=== PATIENT | female | born 1930 | race African-American/Black ===

== ENCOUNTER 2019-07-10 08:43 | Emergency (ER) | payer MEDICARE, MEDICAID ==
[~2019-07-10] VITALS: Ht 165.1 cm; Wt 68.0 kg
[~2019-07-10 08:43] MED LIST: HYDR12.54 PO; IRBE300T42 PO; METF-416 PO; PIOG15TA6 PO
[2019-07-10] MEDS ORDERED: ACETAMINOPHEN 325MG TABLET PO ONE (09:30)
[2019-07-10] MEDS ORDERED: CLONIDINE 0.1MG TABLET PO ONE (13:00)
[2019-07-10] MEDS ORDERED: AMLODIPINE 5MG TABLET PO ONE (13:00)
[2019-07-10 13:29] VITALS: BP 170/86
== END 2019-07-10 13:44 | disposition home or self-care (01) ==
LOC: ER 08:43
DX: S00.83XA Contusion of other part of head, initial encounter (principal); W06.XXXA Fall from bed, initial encounter; Y93.84 Activity, sleeping; Y92.013 Bedroom of single-family (private) house as the place of occurrence of the external cause
CPT/HCPCS: 99284

== ENCOUNTER 2019-12-23 09:02 | Inpatient (IN) | payer MEDICARE, MEDICAID ==
[~2019-12-23] VITALS: Ht 157.5 cm; Wt 82.4 kg
[2019-12-23] MEDS ORDERED: SODIUM CHLORIDE 0.9% 1,000 ML IV ONE ×2 (09:19→11:30)
[2019-12-23 10:16] LABS: BASOPHILS % 0.7 % (0.0-2.0); EOSINOPHILS % 1.5 % (0.0-5.0); HEMATOCRIT. 43.2 % (36.0-48.0); HEMOGLOBIN. 14.2 g/dL (12.0-16.0); LYMPHOCYTES % 21.1 % (20.0-50.0); MEAN CORPUSCULAR HEMOGLOBIN 30.1 pg (28.0-32.0); MEAN CORPUSCULAR VOLUME 91.5 fL (81.0-99.0); MEAN PLATELET VOLUME 9.1 fl (7.4-10.4); MONOCYTES % 6.6 % (2.0-8.0); NEUTROPHILS % 70.1 % (40.0-76.0); PLATELET 230 x1000/uL (130-400); RED BLOOD CELL COUNT 4.72 mill/uL (4.2-5.4); RED CELL DISTRIBUTION WIDTH 13.6 % (11.6-14.6)
[2019-12-23 10:20] LABS: CHLORIDE 101 mEq/L (98-107)
[2019-12-23 10:23] LABS: CLARITY URINE TURBID (CLEAR); COLOR URINE YELLOW (YELLOW); KETONES URINE NEGATIVE (NEGATIVE); LEUKOCYTE ESTERASE URINE 3+ (NEGATIVE); NITRITE URINE NEGATIVE (NEGATIVE); OCCULT BLOOD URINE 1+ (NEGATIVE); PROTEIN URINE TRACE (NEGATIVE); SPECIFIC GRAVITY URINE 1.017 (1.005-1.030); UROBILINOGEN URINE 0.2 E.U./dL (0.2-1.0)
[2019-12-23] MEDS ORDERED: AMLODIPINE 5MG TABLET PO ONE (11:30)
[2019-12-23] MEDS ORDERED: CEFTRIAXONE 1 G PREMIX 50 ML IV ONE (11:30)
[2019-12-23 14:31] VITALS: BP 160/84
[2019-12-23 14:40] VITALS: BP 160/84
[2019-12-23] MEDS ORDERED: GLYC30DR4 EACHEYE (15:19)
[2019-12-23] MEDS ORDERED: AGGR PO (15:19)
[2019-12-23] MEDS ORDERED: AMLO10TA80 PO (15:19)
[2019-12-23] MEDS ORDERED: GLIP5TAB12 PO (15:20)
[2019-12-23] MEDS ORDERED: SENN-170 MT (15:27)
[2019-12-23] MEDS ORDERED: GUAI-793 MT (15:27)
[2019-12-23] MEDS ORDERED: RISP0.5T19 PO (15:27)
[2019-12-23] MEDS ORDERED: METF-414 PO (15:27)
[2019-12-23] MEDS ORDERED: LOSA100T32 PO (15:27)
[2019-12-23] MEDS ORDERED: LEVO25TA2 PO (15:27)
[2019-12-23] MEDS ORDERED: DOCU250C19 PO (15:27)
[2019-12-23] MEDS ORDERED: DEXTROSE 50% WATER 50ML SYRINGE IV PRN (15:45)
[2019-12-23 15:53] VITALS: BP 148/86
[2019-12-23] MEDS ORDERED: DIPHENHYDRAMINE 50MG/ML VIAL IV PRN (16:45)
[2019-12-23] MEDS ORDERED: GUAIFENESIN 200MG/10ML SUGAR FREE UDC PO PRN (16:45)
[2019-12-23] MEDS ORDERED: SENNOSIDES 8.6MG TABLET PO PRN (16:45)
[2019-12-23] MEDS ORDERED: ACETAMINOPHEN 325MG TABLET PO PRN (16:45)
[2019-12-23] MEDS ORDERED: NA PHOS,M-B/NA PHOS,DI-BA ENEMA 118ML PR PRN (16:45)
[2019-12-23] MEDS ORDERED: MAGNESIUM/ALUMINUM HYDROXIDE/SIMETHICONE 30ML UDC PO PRN (16:45)
[2019-12-23] MEDS ORDERED: CLONIDINE 0.1MG TABLET PO PRN (16:45)
[2019-12-23] MEDS: BLOOD SUGAR DIAGNOSTIC STRIP TEST SCH ×2 (16:52→20:34)
[2019-12-23] MEDS: INSULIN LISPRO 100 UNITS/ML SUBCUT SCH ×2 (16:52→21:00)
[2019-12-23] MEDS: ENOXAPARIN 40MG/0.4ML SYR SUBCUT SCH (17:46)
[2019-12-23] MEDS: METFORMIN HCL 500MG TABLET PO SCH (17:46)
[2019-12-23] MEDS: MVI, ADULT NO.1 10 ML, FOLIC ACID 1 MG, THIAMINE HCL 100 MG in SODIUM CHLORIDE 0.9% 1,0... IV NR ×4 (18:58)
[2019-12-23 20:00] VITALS: BP 150/78
[2019-12-23] MEDS: NYSTATIN POWDER 15GM TOP SCH (20:33)
[2019-12-23] MEDS: ASPIRIN/DIPYRIDAMOLE 25MG/200MG CAPSULE SA PO SCH (20:33)
[2019-12-23] MEDS: RISPERIDONE 1MG TABLET PO SCH (20:33)
[2019-12-23] MEDS ORDERED: RISPERIDONE 0.5MG TABLET PO SCH (21:00)
[2019-12-23] MEDS: POLYVINYL ALCOHOL OPHTH DROPS 15ML BOTHEYE SCH (22:20)
[2019-12-24] VITALS: BP 135/75
[2019-12-24 04:00] VITALS: BP 171/90
[2019-12-24] MEDS: LEVOTHYROXINE SODIUM 25MCG TABLET PO SCH (06:04)
[2019-12-24] MEDS: BLOOD SUGAR DIAGNOSTIC STRIP TEST SCH ×4 (06:09→21:09)
[2019-12-24] MEDS: METFORMIN HCL 500MG TABLET PO SCH ×2 (06:16→17:12)
[2019-12-24] MEDS: GLIPIZIDE XL 2.5MG TABLET PO SCH (06:16)
[2019-12-24] MEDS: INSULIN LISPRO 100 UNITS/ML SUBCUT SCH ×4 (06:19→21:00)
[2019-12-24 08:00] VITALS: BP 181/91
[2019-12-24] MEDS: LOSARTAN POTASSIUM 100 MG TABLET PO SCH (09:31)
[2019-12-24] MEDS: ASPIRIN/DIPYRIDAMOLE 25MG/200MG CAPSULE SA PO SCH ×2 (09:31→21:14)
[2019-12-24] MEDS: FLUCONAZOLE 100MG TABLET PO SCH (09:31)
[2019-12-24] MEDS: AMLODIPINE 10MG TABLET PO SCH (09:32)
[2019-12-24] MEDS: DOCUSATE SODIUM 250MG CAPSULE PO SCH (09:32)
[2019-12-24] MEDS: POLYVINYL ALCOHOL OPHTH DROPS 15ML BOTHEYE SCH ×2 (09:33→21:14)
[2019-12-24] MEDS: NYSTATIN POWDER 15GM TOP SCH ×3 (09:33→17:26)
[2019-12-24 09:42] LABS: BASOPHILS % 0.3 % (0.0-2.0); HEMATOCRIT. 40.6 % (36.0-48.0); HEMOGLOBIN. 13.2 g/dL (12.0-16.0); LYMPHOCYTES % 27.9 % (20.0-50.0); MEAN CORPUSCULAR HEMOGLOBIN 29.7 pg (28.0-32.0); MEAN CORPUSCULAR VOLUME 91.5 fL (81.0-99.0); MEAN PLATELET VOLUME 9.1 fl (7.4-10.4); MONOCYTES % 5.8 % (2.0-8.0); PLATELET 202 x1000/uL (130-400); RED BLOOD CELL COUNT 4.44 mill/uL (4.2-5.4); RED CELL DISTRIBUTION WIDTH 13.5 % (11.6-14.6)
[2019-12-24 09:53] LABS: CHLORIDE 109 mEq/L (98-107)
[2019-12-24 09:59] LABS: PHOSPHORUS 2.2 mg/dL (2.5-4.9)
[2019-12-24 12:00] VITALS: BP 178/91
[2019-12-24] MEDS: CEFTRIAXONE 1 G PREMIX 50 ML IV SCH (12:50)
[2019-12-24 16:00] VITALS: BP 116/77
[2019-12-24] MEDS: ENOXAPARIN 40MG/0.4ML SYR SUBCUT SCH (17:12)
[2019-12-24] MEDS ORDERED: MAGNESIUM 1 G PREMIX 100 ML IV NR (17:30)
[2019-12-24 17:54] LABS: T4 FREE 1.27 ng/dL (0.76-1.46)
[2019-12-24 18:14] LABS: FOLIC ACID (FOLATE) SERUM > 20.00 ng/mL (>5.38)
[2019-12-24 18:22] LABS: VITAMIN B12 SERUM 806 pg/mL (211-911)
[2019-12-24] MEDS: MVI, ADULT NO.1 10 ML, FOLIC ACID 1 MG, THIAMINE HCL 100 MG in SODIUM CHLORIDE 0.9% 1,0... IV NR ×4 (19:41)
[2019-12-24 20:00] VITALS: BP_SYST 138; BP_SYST 153; BP_DIAS 66; BP_DIAS 89
[2019-12-24] MEDS: RISPERIDONE 1MG TABLET PO SCH (21:14)
[2019-12-25] VITALS: BP 159/83
[2019-12-25 04:00] VITALS: BP 162/87
[2019-12-25] MEDS: BLOOD SUGAR DIAGNOSTIC STRIP TEST SCH ×4 (07:05→21:42)
[2019-12-25] MEDS: LEVOTHYROXINE SODIUM 25MCG TABLET PO SCH (07:06)
[2019-12-25] MEDS: INSULIN LISPRO 100 UNITS/ML SUBCUT SCH ×4 (07:15→21:00)
[2019-12-25 07:38] LABS: CHLORIDE 109 mEq/L (98-107)
[2019-12-25 07:53] LABS: BASOPHILS % 0.3 % (0.0-2.0); EOSINOPHILS % 1.8 % (0.0-5.0); HEMATOCRIT. 38.8 % (36.0-48.0); HEMOGLOBIN. 12.9 g/dL (12.0-16.0); LYMPHOCYTES % 28.9 % (20.0-50.0); MEAN CORPUSCULAR HEMOGLOBIN 30.2 pg (28.0-32.0); MEAN CORPUSCULAR VOLUME 90.9 fL (81.0-99.0); MEAN PLATELET VOLUME 9.4 fl (7.4-10.4); MONOCYTES % 7.4 % (2.0-8.0); NEUTROPHILS % 61.6 % (40.0-76.0); PLATELET 221 x1000/uL (130-400); RED BLOOD CELL COUNT 4.27 mill/uL (4.2-5.4); RED CELL DISTRIBUTION WIDTH 13.6 % (11.6-14.6)
[2019-12-25 08:00] VITALS: BP 174/88
[2019-12-25] MEDS: GLIPIZIDE XL 2.5MG TABLET PO SCH (09:45)
[2019-12-25] MEDS: POLYVINYL ALCOHOL OPHTH DROPS 15ML BOTHEYE SCH ×2 (09:45→21:47)
[2019-12-25] MEDS: NYSTATIN POWDER 15GM TOP SCH ×3 (09:45→17:52)
[2019-12-25] MEDS: METFORMIN HCL 500MG TABLET PO SCH ×2 (09:45→17:53)
[2019-12-25] MEDS: ASPIRIN/DIPYRIDAMOLE 25MG/200MG CAPSULE SA PO SCH ×2 (09:46→21:47)
[2019-12-25] MEDS: FLUCONAZOLE 100MG TABLET PO SCH (09:46)
[2019-12-25] MEDS: DOCUSATE SODIUM 250MG CAPSULE PO SCH (09:46)
[2019-12-25] MEDS: AMLODIPINE 10MG TABLET PO SCH (09:46)
[2019-12-25] MEDS: LOSARTAN POTASSIUM 100 MG TABLET PO SCH (09:46)
[2019-12-25 12:00] VITALS: BP 158/85
[2019-12-25] MEDS: CEFTRIAXONE 1 G PREMIX 50 ML IV SCH (12:40)
[2019-12-25 16:00] VITALS: BP 126/71
[2019-12-25] MEDS: ENOXAPARIN 40MG/0.4ML SYR SUBCUT SCH (17:53)
[2019-12-25 20:00] VITALS: BP 148/88
[2019-12-25] MEDS: RISPERIDONE 1MG TABLET PO SCH (21:47)
[2019-12-26] VITALS (7 sets, daily range): BP systolic 140–161; BP diastolic 73–93
[2019-12-26] MEDS: BLOOD SUGAR DIAGNOSTIC STRIP TEST SCH ×4 (06:35→20:43)
[2019-12-26] MEDS: INSULIN LISPRO 100 UNITS/ML SUBCUT SCH ×4 (06:36→20:57)
[2019-12-26] MEDS: LEVOTHYROXINE SODIUM 25MCG TABLET PO SCH (06:40)
[2019-12-26] MEDS: NYSTATIN POWDER 15GM TOP SCH ×3 (09:08→17:27)
[2019-12-26] MEDS: FLUCONAZOLE 100MG TABLET PO SCH (09:10)
[2019-12-26] MEDS: POLYVINYL ALCOHOL OPHTH DROPS 15ML BOTHEYE SCH ×2 (09:10→20:56)
[2019-12-26] MEDS: ASPIRIN/DIPYRIDAMOLE 25MG/200MG CAPSULE SA PO SCH ×2 (09:11→20:56)
[2019-12-26] MEDS: METFORMIN HCL 500MG TABLET PO SCH ×2 (09:11→17:33)
[2019-12-26] MEDS: DOCUSATE SODIUM 250MG CAPSULE PO SCH (09:11)
[2019-12-26] MEDS: LOSARTAN POTASSIUM 100 MG TABLET PO SCH (09:11)
[2019-12-26] MEDS: GLIPIZIDE XL 2.5MG TABLET PO SCH (09:11)
[2019-12-26] MEDS: AMLODIPINE 10MG TABLET PO SCH (09:11)
[2019-12-26] MEDS: CEFTRIAXONE 1 G PREMIX 50 ML IV SCH (12:34)
[2019-12-26] MEDS: ENOXAPARIN 40MG/0.4ML SYR SUBCUT SCH (17:28)
[2019-12-26] MEDS: RISPERIDONE 1MG TABLET PO SCH (20:56)
== END 2019-12-26 22:41 | DRG 73 ==
LOC: ER 09:14 → 5WST 11:52 → ENRESERV 12:40
PROVIDERS: ADMIT Internal Medicine; ATTEND Internal Medicine
DX: G90.8 Other disorders of autonomic nervous system (principal); G92 Toxic encephalopathy; N39.0 Urinary tract infection, site not specified; E11.65 Type 2 diabetes mellitus with hyperglycemia; I10 Essential (primary) hypertension; F03.90 Unspecified dementia, unspecified severity, without behavioral disturbance, psychotic disturbance, mood disturbance, and anxiety; K57.90 Diverticulosis of intestine, part unspecified, without perforation or abscess without bleeding; E03.9 Hypothyroidism, unspecified; F20.9 Schizophrenia, unspecified; I25.10 Atherosclerotic heart disease of native coronary artery without angina pectoris; Z66 Do not resuscitate; Z86.73 Personal history of transient ischemic attack (TIA), and cerebral infarction without residual deficits
CPT/HCPCS: 36415; 70544; 70553; 71045; 80048; 80053; 81003; 82140; 82607; 82746; 82962; 83036; 83735; 84100; 84439; 84443; 84481; 85025; 93005; 93880; 93970; 97162; 97166; 99285; C1893; J0696; J1650; J1815; J3411; J3475; J3490; J7030